=== PATIENT | female | born 1975 | race American Indian/Alaskan Native ===

== ENCOUNTER 2017-11-17 10:50 | Inpatient (IN) | payer BC, OTHER ==
[2017-11-17 11:01] VITALS: BMI 33.9
[2017-11-17] MEDS ORDERED: Oxycodone/Acetaminophen 5/325 mg Tab PO STA (11:31)
[2017-11-17] MEDS ORDERED: Sodium Chloride 0.9% 1,000 ML IV STA (11:31)
--- NOTE | 2017-11-17 11:49 | ED PDOC ---
HPI: Abdomen Time Seen by Provider: 11/17/17 11:13 Chief Complaint (Nursing): Back Pain Chief Complaint (Provider): Right Flank and Abdominal Pain History Per: Patient History/Exam Limitations: no limitations Current Symptoms Are (Timing): Still Present Associated Symptoms: denies: Nausea, Vomiting, Diarrhea Additional Complaint(s): 41 year old female, with a past medical history of HTN, presents to the ED complaining of right flank pain and right abdominal pain and severe burning with urination. Patient went to see her PMD who wasn't available so was seen by another doctor who prescribed Cipro. Patient was told to return to the ED if symptoms did not improve. Patient states symptoms worsened prompting ED visit. She states she had dark urine and increased frequency but no blood. She indicates having similar symptoms over the last few months which would come and go but these symptoms are worse. Patient reports having a nonemergent CT in the next month but is not sure what her PMD is looking for. Last month, she had right leg swellign and pain that started in the right calf and went upward and now is in the right posterior thigh. Patient was supposed to take HCTZ but told not to take it due to increased urinary frequency. Denies vaginal pain, vaginal bleeding, vaginal discharge, nausea, vomiting, diarrhea, SOB, cough, CP , recent immobilization, or history of DVT. LMP 11/09/17. PMD: Juan Saldana Past Medical History Reviewed: Historical Data, Nursing Documentation, Vital Signs Vital Signs: Last Vital Signs Temp 98.1 F 11/17/17 22:11 Pulse 71 11/17/17 22:59 Resp 18 11/17/17 22:59 BP 144/95 H 11/17/17 22:11 Pulse Ox 98 11/18/17 14:25 - Medical History PMH: Arthritis (BOTH KNEES), HTN Denies: Chronic Kidney Disease - Surgical History Other surgeries: Gastric sleeve, bilateral trigger finger surgeries, breast reduction - Family History Family History: States: Unknown Family Hx - Social History Current smoker - smoking cessation education provided: No Alcohol: None Drugs: Cannabis - Immunization History Hx Tetanus Toxoid Vaccination: No Hx Influenza Vaccination: Yes Hx Pneumococcal Vaccination: Yes - Home Medications Home Medications: Ambulatory Orders Medication Instructions Recorded Hydrochlorothiazide 25 mg PO DAILY 08/19/14 Naproxen [Naprosyn] 500 mg PO BID 11/17/17 traMADol [Ultram] 50 mg PO TID #10 tab 11/18/17 - Allergies Allergies/Adverse Reactions: Allergies Allergy/AdvReac Type Severity Reaction Status Date / Time amlodipine Allergy SWELLING Verified 11/17/17 11:11 avocado Allergy URTICARIA Verified 11/17/17 11:10 Review of Systems ROS Statement: Except As Marked, All Systems Reviewed And Found Negative Cardiovascular: Negative for: Chest Pain Respiratory: Negative for: Cough, Shortness of Breath Gastrointestinal: Positive for: Abdominal Pain (right flank pain and right abdominal pain). Negative for: Nausea, Vomiting, Diarrhea Genitourinary Female: Positive for: Frequency, Other (Burning with urination and dark urine). Negative for: Hematuria, Vaginal Discharge, Vaginal Bleeding, Pelvic Pain Physical Exam - Reviewed Nursing Documentation Reviewed: Yes Vital Signs Reviewed: Yes - Physical Exam Appears: Positive for: Non-toxic, No Acute Distress Head Exam: Positive for: ATRAUMATIC, NORMOCEPHALIC Skin: Positive for: Normal Color, Warm, Dry Eye Exam: Positive for: Normal appearance Neck: Positive for: Normal, Painless ROM Cardiovascular/Chest: Positive for: Regular Rate, Rhythm. Negative for: Murmur Respiratory: Positive for: Normal Breath Sounds. Negative for: Wheezing, Respiratory Distress Pulses-Dorsalis Pedis (L): 2+ Pulses-Dorsalis Pedis (R): 2+ Pulses-Femoral (L): 2+ Pulses-Femoral (R): 2+ Pulses-Post. Tibialis (L): 2+ Pulses-Post. Tibialis (R): 2+ Gastrointestinal/Abdominal: Positive for: Soft, Other (Right flank pain, LLQ sensation of fullness on palpation; suprapubic and RLQ pain on palpation) Extremity: Positive for: Normal ROM, Other (Right leg not obviously swollen compared to left leg; pain on calf squeeze; tenderness to palpation of popliteal fossa with no warmth and redness) Neurologic/Psych: Positive for: Alert, Oriented. Negative for: Motor/Sensory Deficits - Laboratory Results Result Diagrams: 11/17/17 21:19 11/17/17 12:03 - ECG O2 Sat by Pulse Oximetry: 98 (RA) Pulse Ox Interpretation: Normal Medical Decision Making Medical Decision Making: Initial Impression: Right flank pain and right abdominal pain with burning with urination Work up for UTI vs pyelonephritis vs nephrolithiasis based on frequency of similar symptoms in the past. Work up for DVT with a wells DVT score of 1. Initial Plan: --CT abd --CMP --Lipase --CBC --D Dimer --Partial thromboplastin --Prothrombin --Chest X-ray --Sodium chloride 1000mL IV --Oxycodone 1 tab PO --Urinalysis --US Lower extremity CT per PMD request and US to r/o right lower extremity DVT. 15:15 Patient labs came back revealing D Dimer greater than 1200. Duplex of right lower extremity reveals no DVT with good blood flow. Labs show hemoglobin of 6.6 and hematocrit of 22 with microcytic anemia. Patient states that her PMD told her that her red blood cells were low but it was something to watch. Patient has never had a blood transfusion. Need for transfusion discussed with patient due to low hematocrit and hemoglobin levels and patient requests to think about it to make a decision later. Spoke with Dr. Almaguer who is covering for [place] and patient to be admitted and will be notified of CT findings. Vitals remain stable. Type and screen to be sent for possible blood transfusion and fecal blood test sent. Patient reports pain better controlled with morphine. Scribe Attestation: Documented by Casey Tubbs acting as a scribe for Komal Carlos MD. Provider Scribe Attestation: All medical record entries made by the Scribe were at my direction and personally dictated by me. I have reviewed the chart and agree that the record accurately reflects my personal performance of the history, physical exam, medical decision making, and the department course for this patient. I have also personally directed, reviewed, and agree with the discharge instructions and disposition. Time: 1705 -- CT shows right renal cortical scarring and possible left non-obstructing stones. Possible multiple small retroperitoneal stones noted as well. Patient is comfortable and stable. FOBT levels results negative. Patient is currently waiting a bed on the floor. Scribe Attestation: Documented by Tony Aguilar acting as a scribe for Dr. Komal Carlos MD. Provider Scribe Attestation: All medical record entries made by the Scribe were at my direction and personally dictated by me. I have reviewed the chart and agree that the record accurately reflects my personal performance of the history, physical exam, medical decision making, and the department course for this patient. I have also personally directed, reviewed, and agree with the discharge instructions and disposition. Disposition - Clinical Impression Clinical Impression: Nephrolithiasis, Leg pain - Disposition Disposition Time: 14:56 Condition: GUARDED
[2017-11-17 11:53] LABS: SQUAMOUS EPITHIAL 13 /hpf (0-5); URINE BILIRUBIN NEGATIVE (NEGATIVE); URINE BLOOD NEGATIVE (NEGATIVE); URINE CLARITY CLOUDY (Clear); URINE COLOR YELLOW (YELLOW); URINE GLUCOSE (UA) NEG (Normal); URINE LEUKOCYTE ESTERASE NEG Leu/uL (Negative); URINE PROTEIN 30 mg/dL (NEGATIVE); URINE UROBILINOGEN 0.2-1.0 mg/dL (0.2-1.0)
[2017-11-17] MEDS ORDERED: Oxycodone/Acetaminophen 5/325 mg Tab ONE (12:12)
[2017-11-17 12:20] LABS: ALB/GLOB RATIO 0.9 (1.0-2.1); ALT/SGPT 30 U/L (9-52); AST/SGOT 65 U/L (14-36); BLOOD UREA NITROGEN 10 mg/dl (7-17); CALCIUM 9.3 mg/dL (8.4-10.2); GFR NON-AFRICAN AMERICAN > 60; LIPASE 68 U/L (23-300)
[2017-11-17 12:21] LABS: INR 1.2; PROTHROMBIN TIME 13.6 Seconds (9.8-13.1)
[2017-11-17 12:29] LABS: BASO # 0.1 K/uL (0.0-0.2); BASO % 0.8 % (0.0-2.0); EOS # 0.3 K/uL (0.0-0.7); EOS % 3.1 % (0.0-4.0); HEMOGLOBIN 6.8 g/dL (12.0-16.0); LYMPH # 1.3 K/uL (1.0-4.3); LYMPH % 16.2 % (20.0-40.0); MEAN CORPUSCULAR HEMOGLOBIN 18.7 pg (27.0-31.0); MEAN PLATELET VOLUME 7.4 fl (7.2-11.7); MONO # 0.9 K/uL (0.0-0.8); MONO % 10.5 % (0.0-10.0); NEUT # 5.7 K/uL (1.8-7.0); NEUT % 69.4 % (50.0-75.0); NRBC % 0.1 % (0.0-0.0); RBC 3.66 Mil/uL (3.80-5.20); RED CELL DISTRIBUTION WIDTH 17.9 % (11.5-14.5); WHITE BLOOD COUNT 8.2 K/uL (4.8-10.8)
[2017-11-17 13:56] LABS: MEAN CELL VOLUME 62.3 fl (81.0-99.0)
--- NOTE | 2017-11-17 16:00 | RAD ---
Date of service: 11/17/2017 HISTORY: possible admission COMPARISON: No prior. FINDINGS: LUNGS: No active pulmonary disease. PLEURA: No significant pleural effusion identified, no pneumothorax apparent. CARDIOVASCULAR: Normal. OSSEOUS STRUCTURES: No significant abnormalities. VISUALIZED UPPER ABDOMEN: Normal. OTHER FINDINGS: None. IMPRESSION: No active disease.
--- NOTE | 2017-11-17 16:46 | CT ---
Date of service: 11/17/2017 PROCEDURE: CT abdomen pelvis HISTORY: Right flank pain off and on for 2 months. COMPARISON: None. TECHNIQUE: Contiguous axial images of the abdomen and pelvis. Oral contrast was administered. No IV contrast given. Coronal and Sagittal reformats generated. Radiation dose: Total exam DLP = mGy-cm. This CT exam was performed using one or more of the following dose reduction techniques: Automated exposure control, adjustment of the mA and/or kV according to patient size, and/or use of iterative reconstruction technique. FINDINGS: LOWER THORAX: Heart size is mildly enlarged. There is a small to medium size hiatal hernia with air-fluid level consistent with reflux. Mild passive/dependent type atelectasis both posterior lower lung cosby. There are also some minor curvilinear atelectasis/ scarring changes both lung bases including the middle lobe region. No focal consolidation. No effusion or basilar pneumothorax. LIVER: Liver is upper limits of normal measuring over 18 cm in CC dimension. No obvious hepatic mass or collection. GALLBLADDER AND BILE DUCTS: Gallbladder is physiologically distended. No evidence of intraluminal gallbladder calculi. PANCREAS: Unremarkable. No mass. No ductal dilatation. SPLEEN: Spleen is upper limits of normal measuring nearly 12.6 cm in AP dimension. No splenic mass collection or calcification. ADRENALS: No obvious adrenal lesions KIDNEYS AND URETERS: Kidneys demonstrate relatively symmetric size. . Tiny suspected nonobstructing calcification cortex upper/midpole left kidney. Lobular appearing cortex versus cortical scarring along the posterior cortex mid-lower pole right kidney. . BLADDER: Urinary bladder physiologically distended. No evidence of intraluminal urinary bladder calculi REPRODUCTIVE: Uterus present and grossly unremarkable APPENDIX: Appendix is not seen with complete certainty on this study however no obvious inflammatory changes identified in the right lower quadrant of the abdomen BOWEL: Evaluation of the bowel is somewhat limited due to the lack of oral contrast. Apparent postoperative changes of gastric sleeve surgery however clinical correlation with surgical history recommended. Visualized loops of small bowel exhibit normal contour and caliber. No evidence of acute mechanical small bowel obstruction. There is a moderate amount of stool seen within the cecum ascending and transverse colon suggesting mild fecal retention/constipation. PERITONEUM: There appears to be increased mesenteric vascularity nonspecific with multiple small mesenteric lymph nodes. Rule out mesenteric adenitis. . . No fluid collection. No free air. LYMPH NODES: As above. Multiple small to medium-sized peripancreatic, periceliac, retroperitoneal lymph nodes also present. . Clinical correlation recommended VASCULATURE: Unremarkable. No aortic aneurysm. BONES: Minor multilevel degenerative spondylosis of the lower thoracic/ lumbar spine. OTHER FINDINGS: None. IMPRESSION: Findings suggest mild constipation. Borderline hepatosplenomegaly. . There are multiple small to medium sized retroperitoneal lymph nodes of uncertain etiology and multiple small on mesenteric lymph nodes. Rule out mesenteric adenitis. . Apparent nonspecific increased mesenteric vascularity ; clinical correlation recommended. Small to medium size hiatal hernia with some small fluid level consistent with reflux. Apparent postop changes of gastric sleeve procedure.
[2017-11-17 22:13] VITALS: BP 144/95; PULSE 71; TEMP 98.1
[2017-11-17 22:14] LABS: BASO % 0.4 % (0.0-2.0); EOS # 0.2 K/uL (0.0-0.7); EOS % 2.9 % (0.0-4.0); LYMPH # 1.5 K/uL (1.0-4.3); MEAN CORPUSCULAR HEMOGLOBIN 18.8 pg (27.0-31.0); MEAN CORPUSCULAR HGB CONC 30.3 g/dL (33.0-37.0); MEAN PLATELET VOLUME 7.2 fl (7.2-11.7); MONO # 0.9 K/uL (0.0-0.8); MONO % 11.2 % (0.0-10.0); NEUT # 5.6 K/uL (1.8-7.0); NEUT % 67.5 % (50.0-75.0); RBC 3.4 Mil/uL (3.80-5.20); WHITE BLOOD COUNT 8.2 K/uL (4.8-10.8)
[2017-11-17 22:21] LABS: HEMOGLOBIN 6.4 g/dL (12.0-16.0)
--- NOTE | 2017-11-17 23:37 | CP.PCM.PCO ---
Against Medical Advice - AMA Patient Left Against Medical Advice: The patient declines admission to the hospital and wishes to leave telemetry, inpatient admission. This action is against my medical advice. This decision was made with informed refusal. The patient was told that admission to the hospital is necessary. Explanation of the reasons why were discussed. The risks of leaving were explained to the patient and include, but are not limited to, worsening of known or currently unknown conditions, permanent disability and from undiagnosed or untreated conditions. The patient has the capacity to make this informed decision and understands my explanation of the current medical problem and risks of leaving. The patient voluntarily accepts these risks and signed an AMA form documenting our conversation. The patient was given the opportunity to ask questions and reconsider. The patient was encouraged to return to the Emergency Department at any time for further care. Assessment/Plan - Assessment and Plan (Free Text) Assessment: 41 YO Female was admitted for Anemia, elevated D-dimer. This MD was called to telemetry floor to sign the patient out AMA. PMD is aware of the situation and was notified that patient would like to sign out AMA Potential risks of signing out AMA is discussed with patient including but not limited to syncope, dizziness, dyspnea, . Potential benefit including but not limited to resolution of the anemia. Pt understands but would like to sign out AMA.
[2017-11-18] VITALS: RESP 18
--- NOTE | 2017-11-18 12:09 | CARD ---
APPROVED REPORT Date of service: 11/17/2017 <Conclusion> Normal sinus rhythm with sinus arrhythmia Normal ECG
[2017-11-18 14:22] VITALS: O2SAT 98
--- NOTE | 2017-11-19 16:12 | US ---
Date of service: 11/17/2017 PROCEDURE: Duplex ultrasound of the right lower extremity arteries. HISTORY: migratory pain swelling to right leg with warmth. COMPARISON: None available. TECHNIQUE: Grayscale and duplex Doppler evaluation of the right common femoral, superficial femoral, popliteal, posterior tibial and dorsalis pedis arteries was performed.. FINDINGS: COMMON FEMORAL ARTERY: Patent. Maximal flow velocity of 124.7 cm/s. normal high resistance waveform. SUPERFICIAL FEMORAL ARTERY:Patent. Maximal flow velocity of 95.8 cm/s. normal high resistance waveform. POPLITEAL ARTERY:Patent. Maximal flow velocity of 47.9 cm/s. normal high resistance waveform. POSTERIOR TIBIAL ARTERY: Patent. Maximal flow velocity of 41.8 cm/s. normal high resistance waveform. DORSALIS PEDIS ARTERY: Patent. Maximal flow velocity of 30.5 cm/s. normal high resistance waveform. ANTERIOR TIBIAL ARTERY: Patent. Maximal flow velocity of 66.4 cm/s. normal high resistance waveform. OTHER FINDINGS: None. IMPRESSION: No significant stenosis identified throughout the right lower extremity major arteries. Concordant preliminary report from [facility], 11/17/2017.
== END 2017-11-17 23:30 | disposition left against medical advice (07) | DRG 812 ==
LOC: H.ER 10:50 → H.ERHOLD 14:56 → H.TEL 21:38
PROVIDERS: ADMIT Family Medicine; ATTEND Family Medicine
DX: D50.9 Iron deficiency anemia, unspecified (principal); I10 Essential (primary) hypertension; R79.1 Abnormal coagulation profile; M17.0 Bilateral primary osteoarthritis of knee; Z98.84 Bariatric surgery status

== ENCOUNTER 2017-11-23 14:33 | Inpatient (IN) | payer BC, OTHER ==
[2017-11-23 14:34] VITALS: BMI 33.9
--- NOTE | 2017-11-23 15:23 | ED PDOC ---
Lower Extremity Pain/Injury Time Seen by Provider: 11/23/17 15:00 Chief Complaint (Nursing): Lower Extremity Problem/Injury Chief Complaint (Provider): DVT History Per: Patient History/Exam Limitations: no limitations Onset/Duration Of Symptoms: Days Current Symptoms Are (Timing): Still Present Additional Complaint(s): 41 year old female with a history of gastric sleeve with ongoing anemia was referred to the ED for DVT noted in outpatient care. She was sent by her PMD for treatment and admission. She has moderate lower back pain that radiates to thighs as well as vaginal bleeding. Denies chest pain or shortness of breath. PMD: Juan Lowry Past Medical History Reviewed: Historical Data, Nursing Documentation, Vital Signs Vital Signs: Last Vital Signs Temp 98.2 F 11/23/17 14:41 Pulse 82 11/23/17 14:41 Resp 19 11/23/17 14:41 BP 120/77 11/23/17 14:41 Pulse Ox 98 11/23/17 14:41 - Medical History PMH: Anemia, Arthritis (BOTH KNEES), HTN Denies: Chronic Kidney Disease - Surgical History Other surgeries: gastric sleeve - Family History Family History: States: Unknown Family Hx - Immunization History Hx Tetanus Toxoid Vaccination: No Hx Influenza Vaccination: Yes Hx Pneumococcal Vaccination: Yes - Home Medications Home Medications: Ambulatory Orders Medication Instructions Recorded Hydrochlorothiazide 25 mg PO DAILY 08/19/14 Naproxen [Naprosyn] 500 mg PO BID PRN 11/17/17 Nitrofurantoin Macrocrystals 100 mg PO Q12 11/23/17 [Macrobid] - Allergies Allergies/Adverse Reactions: Allergies Allergy/AdvReac Type Severity Reaction Status Date / Time amlodipine Allergy SWELLING Verified 11/17/17 11:11 avocado Allergy URTICARIA Verified 11/17/17 11:10 Review of Systems ROS Statement: Except As Marked, All Systems Reviewed And Found Negative Cardiovascular: Negative for: Chest Pain Respiratory: Negative for: Shortness of Breath Genitourinary Female: Positive for: Vaginal Bleeding Musculoskeletal: Positive for: Back Pain Physical Exam - Reviewed Nursing Documentation Reviewed: Yes Vital Signs Reviewed: Yes - Physical Exam Appears: Positive for: Non-toxic, No Acute Distress Head Exam: Positive for: ATRAUMATIC, NORMAL INSPECTION, NORMOCEPHALIC Skin: Positive for: Normal Color, Warm, Dry Eye Exam: Positive for: EOMI, Normal appearance, PERRL ENT: Positive for: Normal ENT Inspection Neck: Positive for: Normal, Painless ROM, Supple. Negative for: Decreased ROM Cardiovascular/Chest: Positive for: Regular Rate, Rhythm. Negative for: Murmur Respiratory: Positive for: Normal Breath Sounds. Negative for: Decreased Breath Sounds, Wheezing, Respiratory Distress Gastrointestinal/Abdominal: Positive for: Normal Exam, Bowel Sounds, Soft. Negative for: Tenderness, Guarding Back: Positive for: Normal Inspection. Negative for: L CVA Tenderness, R CVA Tenderness Extremity: Positive for: Normal ROM. Negative for: Tenderness, Pedal Edema, Deformity Neurologic/Psych: Positive for: Alert, Oriented (x3). Negative for: Motor/ Sensory Deficits - Laboratory Results Result Diagrams: 11/24/17 16:10 11/23/17 16:10 - ECG O2 Sat by Pulse Oximetry: 98 (RA) Pulse Ox Interpretation: Normal - Progress ED Course And Treament: D/W [facility] [employer]. HAS SEN PRELIM REPORT DUPLEX RIGHT LEG: DEMONSTRATING DVT RIGHT COMMON FEMORAL TO POPLITEAL VEINS. d/w Dr. Almaguer. 2 units RBCs ordered. d/w Dr. Sotero [place]. Lovenox ordered for dvt treatment. Patient to have stool occult guiac x 3 days to assure no bleeding. Medical Decision Making Medical Decision Making: Time: 1507 Initial Impression: DVT Initial Plan: --BKK Type and Screen --EKG --CMP --CBC w/ Differential --PTT --Prothrombin Time --Urinalysis --Reevaluation Pulmonary report from [place] radiology fax presents US RLE venous dopper says DVT from common femur through popliteal veins Scribe Attestation: Documented by Maurice Morejon, acting as a scribe for Adrian Coleman PA-C. Provider Scribe Attestation: All medical record entries made by the Scribe were at my direction and personally dictated by me. I have reviewed the chart and agree that the record accurately reflects my personal performance of the history, physical exam, medical decision making, and the department course for this patient. I have also personally directed, reviewed, and agree with the discharge instructions and disposition. Disposition - Clinical Impression Clinical Impression: DVT (deep venous thrombosis), Anemia - Patient ED Disposition Is Patient to be Admitted: Yes - Disposition Disposition Time: 17:21 Condition: FAIR - Pt Status Changed To: Hospital Disposition Of: Inpatient - Admit Certification Admit to Inpatient:: After my assessment, the patient will require hospitalization for at least two midnights. This is because of the severity of symptoms shown, intensity of services needed, and/or the medical risk in this patient being treated as an outpatient.
[2017-11-23 16:11] LABS: BASO # 0.1 K/uL (0.0-0.2); BASO % 0.6 % (0.0-2.0); EOS # 0.3 K/uL (0.0-0.7); HEMOGLOBIN 7.3 g/dL (12.0-16.0); LYMPH # 1.5 K/uL (1.0-4.3); LYMPH % 16.3 % (20.0-40.0); MEAN CELL VOLUME 61.9 fl (81.0-99.0); MEAN CORPUSCULAR HEMOGLOBIN 18.9 pg (27.0-31.0); MEAN CORPUSCULAR HGB CONC 30.6 g/dL (33.0-37.0); MEAN PLATELET VOLUME 7.6 fl (7.2-11.7); MONO # 0.6 K/uL (0.0-0.8); NEUT # 6.5 K/uL (1.8-7.0); NEUT % 73.1 % (50.0-75.0); RBC 3.86 Mil/uL (3.80-5.20); RED CELL DISTRIBUTION WIDTH 18.2 % (11.5-14.5); WHITE BLOOD COUNT 8.9 K/uL (4.8-10.8)
[2017-11-23 16:14] LABS: INR 1.2; PROTHROMBIN TIME 13.1 Seconds (9.8-13.1)
[2017-11-23 16:17] LABS: PARTIAL THROMBOPLASTIN TIME 24.4 Seconds (25.6-37.1)
[2017-11-23 16:53] LABS: ALB/GLOB RATIO 0.9 (1.0-2.1); ALT/SGPT 20 U/L (9-52); AST/SGOT 35 U/L (14-36); BLOOD UREA NITROGEN 13 mg/dl (7-17); CALCIUM 9.5 mg/dL (8.4-10.2); GFR NON-AFRICAN AMERICAN > 60
[2017-11-23] MEDS ORDERED: Enoxaparin 80 mg Syringe SC STA ×2 (17:44→17:47)
[2017-11-23] MEDS: Enoxaparin 100 mg Syringe SC SCH (18:12)
[2017-11-23 19:32] LABS: FERRITIN 8.7 ng/Ml (6.24-137.0)
[2017-11-24] MEDS: Enoxaparin 100 mg Syringe SC SCH ×2 (05:52→17:14)
[2017-11-24] MEDS ORDERED: Naproxen 500 MG TAB PO PRN (06:31)
--- NOTE | 2017-11-24 09:28 | CARD ---
APPROVED REPORT Date of service: 11/23/2017 EKG Measurement Heart [id number] ID [id number] <Conclusion> Normal sinus rhythm Normal ECG
--- NOTE | 2017-11-24 14:01 | CP.PCM.HP ---
History of Present Illness - History of Present Illness History of Present Illness: 41 year old female with a history of gastric sleeve with ongoing anemia was referred to the ED for DVT noted in outpatient care. She was sent by her PMD for treatment and admission. She has moderate lower back pain that radiates to thighs as well as vaginal bleeding. Denies chest pain or shortness of breath. pt recieved transfusion, is stable, no active bleeding. Present on Admission - Present on Admission Any Indicators Present on Admission: No Review of Systems - Constitutional Constitutional: absent: As Per HPI, Anorexia, Chills, Daytime Sleepiness, Excessive Sweating, Fatigue, Fever, Frequent Falls, Headache, Increased Appetite , Lethargy, Malaise, Night Sweats, Snoring, Sleep Apnea, Weight Gain, Weight Loss, Weakness, Other - Cardiovascular Cardiovascular: absent: As Per HPI, Acrocyanosis, Chest Pain, Chest Pain at Rest , Chest Pain with Activity, Claudication, Diaphoresis, Dyspnea, Dyspnea on Exertion, Edema, Irregular Heart Rhythm, Pain Radiating to Arm/Neck/Jaw, Leg Edema, Leg Ulcers, Lightheadedness, Orthopnea, Palpitations, Paroxysmal Nocturnal Dyspnea, Pedal Edema, Radiating Pain, Rapid Heart Rate, Slow Heart Rate, Syncope, Other - Respiratory Respiratory: absent: As Per HPI, Cough, Dyspnea, Hemoptysis, Dyspnea on Exertion , Wheezing, Snoring, Stridor, Pain on Inspiration, Chest Congestion, Excessive Mucous Production, Change in Mucous Color, Pain with Coughing, Other - Gastrointestinal Gastrointestinal: absent: As Per HPI, Abdominal Pain, Belching, Bloating, Change in Bowel Habits, Change in Stool Character, Coffee Ground Emesis, Constipation, Cramping, Diarrhea, Dyspepsia, Dysphagia, Early Satiety, Excessive Flatus, Fecal Incontinence, Heartburn, Hematemesis, Hematochezia, Loose Stools, Melena, Nausea, Odynophagia, Temesmus, Vomiting, Other - Neurological Neurological: absent: As Per HPI, Abnormal Gait, Abnormal Hearing, Abnormal Movements, Abnormal Speech, Behavioral Changes, Burning Sensations, Confusion, Convulsions, Disequilibrium, Dizziness, Numbness, Focal Weakness, Frequent Falls , Headaches, Lack of Coordination, Loss of Vision, Memory Loss, Paresthesias, Radicular Pain, Restless Legs, Sensory Deficit, Syncope, Tingling, Tremor, Vertigo, Weakness, Other Visual Disturbances, Other Past Patient History - Past Medical History & Family History Past Medical History?: Yes - Past Social History Smoking Status: Never Smoked - CARDIAC Hx Cardiac Disorders: Yes Hx Hypertension: Yes - PULMONARY Hx Respiratory Disorders: No - NEUROLOGICAL Hx Neurological Disorder: No - HEENT Hx HEENT Problems: No - RENAL Hx Chronic Kidney Disease: No - ENDOCRINE/METABOLIC Hx Endocrine Disorders: No - HEMATOLOGICAL/ONCOLOGICAL Hx Blood Disorders: Yes Hx Anemia: Yes - INTEGUMENTARY Hx Dermatological Problems: No - MUSCULOSKELETAL/RHEUMATOLOGICAL Hx Musculoskeletal Disorders: No Hx Falls: No - GASTROINTESTINAL Hx Gastrointestinal Disorders: No - GENITOURINARY/GYNECOLOGICAL Hx Genitourinary Disorders: No - PSYCHIATRIC Hx Psychophysiologic Disorder: No Hx Substance Use: No - SURGICAL HISTORY Hx Surgeries: Yes Other/Comment: 08/2014 Gastric Sleeve. 2009 TRIGGER FINGER BOTH HANDS. 2004 BREAST REDUCTION - ANESTHESIA Hx Anesthesia: Yes Hx Anesthesia Reactions: No Hx Malignant Hyperthermia: No Meds Allergies/Adverse Reactions: Allergies Allergy/AdvReac Type Severity Reaction Status Date / Time amlodipine Allergy SWELLING Verified 11/17/17 11:11 avocado Allergy URTICARIA Verified 11/17/17 11:10 Physical Exam - Head Exam Head Exam: ATRAUMATIC, NORMAL INSPECTION - Eye Exam Eye Exam: EOMI, Normal appearance Pupil Exam: NORMAL ACCOMODATION - ENT Exam ENT Exam: Mucous Membranes Moist, Normal Exam - Neck Exam Neck exam: Positive for: Normal Inspection - Respiratory Exam Respiratory Exam: Clear to Auscultation Bilateral, NORMAL BREATHING PATTERN - Cardiovascular Exam Cardiovascular Exam: REGULAR RHYTHM, +S1, +S2 - GI/Abdominal Exam GI & Abdominal Exam: Normal Bowel Sounds, Soft - Extremities Exam Extremities exam: Positive for: full ROM, normal inspection - Neurological Exam Neurological exam: Alert, Oriented x3 Results - Vital Signs Recent Vital Signs: Last Vital Signs Temp 98 F 11/24/17 12:58 Pulse 63 11/24/17 12:58 Resp 20 11/24/17 12:58 BP 124/83 11/24/17 12:58 Pulse Ox 100 11/24/17 12:58 - Labs Result Diagrams: 11/23/17 15:20 11/23/17 16:10 Labs: Laboratory Results - last 24 hr 11/23/17 11/23/17 11/23/17 15:20 15:20 15:20 WBC 8.9 RBC 3.86 Hgb 7.3 L Hct 23.9 L MCV 61.9 L MCH 18.9 L MCHC 30.6 L RDW 18.2 H Plt Count 629 H MPV 7.6 Neut % (Auto) 73.1 Lymph % (Auto) 16.3 L [place] % (Auto) 7.0 Eos % (Auto) 3.0 Baso % (Auto) 0.6 Neut # (Auto) 6.5 Lymph # (Auto) 1.5 [place] # (Auto) 0.6 Eos # (Auto) 0.3 Baso # (Auto) 0.1 Retic Count PT 13.1 INR 1.2 APTT 24.4 L Sodium Potassium Chloride Carbon Dioxide Anion Gap BUN Creatinine Est GFR ( Amer) Est GFR (Non-Af Amer) Random Glucose Calcium Ferritin Total Bilirubin AST ALT Alkaline Phosphatase Total Protein Albumin Globulin Albumin/Globulin Ratio Vitamin B12 Stool Occult Blood Blood Type B POSITIVE Antibody Screen Negative Crossmatch See Detail BBK History Checked Patient has bt 11/23/17 11/23/17 11/23/17 15:40 16:10 17:50 WBC RBC Hgb Hct MCV MCH MCHC RDW Plt Count MPV Neut % (Auto) Lymph % (Auto) [place] % (Auto) Eos % (Auto) Baso % (Auto) Neut # (Auto) Lymph # (Auto) [place] # (Auto) Eos # (Auto) Baso # (Auto) Retic Count PT INR APTT Sodium 141 Potassium 3.8 Chloride 104 Carbon Dioxide 28 Anion Gap 13 BUN 13 Creatinine 0.7 Est GFR ( Amer) > 60 Est GFR (Non-Af Amer) > 60 Random Glucose 86 Calcium 9.5 Ferritin 8.7 Total Bilirubin 0.4 AST 35 ALT 20 Alkaline Phosphatase 98 Total Protein 8.3 H Albumin 4.0 Globulin 4.3 H Albumin/Globulin Ratio 0.9 L Vitamin B12 > 1000 H Stool Occult Blood Negative Blood Type Antibody Screen Crossmatch BBK History Checked 11/23/17 17:50 WBC RBC Hgb Hct MCV MCH MCHC RDW Plt Count MPV Neut % (Auto) Lymph % (Auto) [place] % (Auto) Eos % (Auto) Baso % (Auto) Neut # (Auto) Lymph # (Auto) [place] # (Auto) Eos # (Auto) Baso # (Auto) Retic Count 1.6 H PT INR APTT Sodium Potassium Chloride Carbon Dioxide Anion Gap BUN Creatinine Est GFR ( Amer) Est GFR (Non-Af Amer) Random Glucose Calcium Ferritin Total Bilirubin AST ALT Alkaline Phosphatase Total Protein Albumin Globulin Albumin/Globulin Ratio Vitamin B12 Stool Occult Blood Blood Type Antibody Screen Crossmatch BBK History Checked Assessment & Plan - Assessment and Plan (Free Text) Assessment: 1. DVT pt on lovenox hem consulted cont to monitor will change to po once hb is stable 2. anemia fobt neg ct done s/p transfusion will cont to monitor.
[2017-11-24 16:16] LABS: MEAN CORPUSCULAR HEMOGLOBIN 20.5 pg (27.0-31.0); MEAN CORPUSCULAR HGB CONC 31.1 g/dL (33.0-37.0); RBC 4.17 Mil/uL (3.80-5.20); RED CELL DISTRIBUTION WIDTH 22.5 % (11.5-14.5); WHITE BLOOD COUNT 7.7 K/uL (4.8-10.8)
[2017-11-24 16:19] LABS: HEMOGLOBIN 8.6 g/dL (12.0-16.0)
[2017-11-25] MEDS: Enoxaparin 100 mg Syringe SC SCH ×2 (05:53→17:00)
[2017-11-25 07:02] LABS: HEMOGLOBIN 8.5 g/dL (12.0-16.0); MEAN CORPUSCULAR HEMOGLOBIN 20.6 pg (27.0-31.0); MEAN CORPUSCULAR HGB CONC 31.3 g/dL (33.0-37.0); RBC 4.14 Mil/uL (3.80-5.20); RED CELL DISTRIBUTION WIDTH 21.9 % (11.5-14.5)
[2017-11-25 07:23] LABS: MEAN CELL VOLUME 65.7 fl (81.0-99.0)
--- NOTE | 2017-11-25 11:23 | CP.PCM.CON ---
History of Present Illness - History of Present Illness History of Present Illness: P5t seen orders written.\ Full consult note to follow. Orders written A. Pt has been anemic but not so low. a 3 yrs ago.nemia secondary to gastric sleeve surgery Past Patient History - Past Medical History & Family History Past Medical History?: Yes - Past Social History Smoking Status: Never Smoked - CARDIAC Hx Hypertension: Yes - PULMONARY Hx Respiratory Disorders: No - NEUROLOGICAL Hx Neurological Disorder: No - HEENT Hx HEENT Problems: No - RENAL Hx Chronic Kidney Disease: No - ENDOCRINE/METABOLIC Hx Endocrine Disorders: No - HEMATOLOGICAL/ONCOLOGICAL Hx Anemia: Yes - INTEGUMENTARY Hx Dermatological Problems: No - MUSCULOSKELETAL/RHEUMATOLOGICAL Hx Arthritis: Yes (BOTH KNEES) - GASTROINTESTINAL Hx Gastrointestinal Disorders: No - GENITOURINARY/GYNECOLOGICAL Hx Genitourinary Disorders: No - PSYCHIATRIC Hx Psychophysiologic Disorder: No Hx Substance Use: No - SURGICAL HISTORY Hx Surgeries: Yes Other/Comment: 08/2014 Gastric Sleeve. 2009 TRIGGER FINGER BOTH HANDS. 2004 BREAST REDUCTION - ANESTHESIA Hx Anesthesia: Yes Hx Anesthesia Reactions: No Hx Malignant Hyperthermia: No Meds Allergies/Adverse Reactions: Allergies Allergy/AdvReac Type Severity Reaction Status Date / Time amlodipine Allergy SWELLING Verified 11/17/17 11:11 avocado Allergy URTICARIA Verified 11/17/17 11:10 - Medications Medications: Current Medications Enoxaparin Sodium (Lovenox) 90 mg SC Q12H EMILE PRN Reason: Protocol Last Admin: 11/25/17 05:53 Dose: 90 mg Iron Sucrose 200 mg/ Sodium (Chloride) 110 mls @ 110 mls/hr IVPB DAILY [facility]1983 Ketorolac Tromethamine (Toradol) 15 mg IVP Q6 PRN PRN Reason: Pain, moderate (4-7) Last Admin: 11/25/17 08:32 Dose: 15 mg Ondansetron HCl (Zofran Inj) 4 mg IVP Q6 PRN PRN Reason: Nausea/Vomiting Results - Vital Signs Recent Vital Signs: Last Vital Signs Temp 98.7 F 11/25/17 08:22 Pulse 55 L 11/25/17 08:22 Resp 20 11/25/17 08:22 BP 126/81 11/25/17 08:22 Pulse Ox 100 11/25/17 08:22 - Labs Result Diagrams: 11/25/17 05:00 11/23/17 16:10 Labs: Laboratory Results - last 24 hr 11/24/17 11/24/17 11/25/17 16:10 18:19 05:00 WBC 7.7 7.0 RBC 4.17 4.14 Hgb 8.6 L 8.5 L Hct 27.5 L 27.2 L MCV 66.0 L D 65.7 L MCH 20.5 L 20.6 L MCHC 31.1 L 31.3 L RDW 22.5 H 21.9 H Plt Count 570 H 564 H Stool Occult Blood Negative
--- NOTE | 2017-11-25 12:39 | CP.PCM.PN ---
Subjective - Date & Time of Evaluation Date of Evaluation: 11/25/17 Time of Evaluation: 11:00 - Subjective Subjective: pt seen and examined at bedside. no new complaints. no active bleeding. tolerating po Objective - Vital Signs/Intake and Output Vital Signs (last 24 hours): Temp Pulse Resp BP Pulse Ox 98.5 F 62 20 128/82 100 11/25/17 12:29 11/25/17 12:29 11/25/17 12:29 11/25/17 12:29 11/25/17 12:29 - Medications Medications: Current Medications Enoxaparin Sodium (Lovenox) 90 mg SC Q12H EMILE PRN Reason: Protocol Last Admin: 11/25/17 05:53 Dose: 90 mg Iron Sucrose 200 mg/ Sodium (Chloride) 110 mls @ 110 mls/hr IVPB DAILY EMILE Ketorolac Tromethamine (Toradol) 15 mg IVP Q6 PRN PRN Reason: Pain, moderate (4-7) Last Admin: 11/25/17 08:32 Dose: 15 mg Ondansetron HCl (Zofran Inj) 4 mg IVP Q6 PRN PRN Reason: Nausea/Vomiting - Labs Labs: 11/25/17 05:00 11/23/17 16:10 PT 13.1 Seconds (9.8-13.1) 11/23/17 15:20 INR 1.2 11/23/17 15:20 APTT 24.4 Seconds (25.6-37.1) L 11/23/17 15:20 - Constitutional Appears: Well - Head Exam Head Exam: NORMAL INSPECTION - Eye Exam Pupil Exam: NORMAL ACCOMODATION - ENT Exam ENT Exam: Mucous Membranes Moist - Respiratory Exam Respiratory Exam: Clear to Ausculation Bilateral, NORMAL BREATHING PATTERN - Cardiovascular Exam Cardiovascular Exam: REGULAR RHYTHM, +S1, +S2 - GI/Abdominal Exam GI & Abdominal Exam: Soft, Normal Bowel Sounds - Neurological Exam Neurological Exam: Alert, Oriented x3 Assessment and Plan - Assessment and Plan (Free Text) Assessment: Anemia dvt Plan: 1. anemia s/p transfusion hb8.5 iv iron as per hematology cont to monitor 2. dvt lovenox cont to monitor
[2017-11-26] MEDS: Enoxaparin 100 mg Syringe SC SCH ×2 (05:44→17:23)
[2017-11-26 08:12] VITALS: RESP 20
--- NOTE | 2017-11-26 10:04 | CP.PCM.PN ---
Subjective - Date & Time of Evaluation Date of Evaluation: 11/26/17 Time of Evaluation: 10:04 - Subjective Subjective: pt doing well asking to go home no cp pappitations or sob co mild r high pain cleared by heme/onc for dc bw notes Objective - Vital Signs/Intake and Output Vital Signs (last 24 hours): Temp Pulse Resp BP Pulse Ox 98.1 F 53 L 20 136/85 100 11/26/17 08:11 11/26/17 08:11 11/26/17 08:11 11/26/17 08:11 11/26/17 08:11 - Medications Medications: Current Medications Enoxaparin Sodium (Lovenox) 90 mg SC Q12H EMILE PRN Reason: Protocol Last Admin: 11/26/17 05:44 Dose: 90 mg Iron Sucrose 200 mg/ Sodium (Chloride) 110 mls @ 110 mls/hr IVPB DAILY EMILE Last Admin: 11/26/17 08:45 Dose: 110 mls/hr Ketorolac Tromethamine (Toradol) 15 mg IVP Q6 PRN PRN Reason: Pain, moderate (4-7) Last Admin: 11/25/17 23:16 Dose: 15 mg Ondansetron HCl (Zofran Inj) 4 mg IVP Q6 PRN PRN Reason: Nausea/Vomiting Zolpidem Tartrate (Ambien) 5 mg PO HS EMILE Last Admin: 11/25/17 23:10 Dose: 5 mg - Labs Labs: 11/25/17 05:00 11/23/17 16:10 PT 13.1 Seconds (9.8-13.1) 11/23/17 15:20 INR 1.2 11/23/17 15:20 APTT 24.4 Seconds (25.6-37.1) L 11/23/17 15:20 - Constitutional Appears: Well, Non-toxic, No Acute Distress - Head Exam Head Exam: ATRAUMATIC, NORMAL INSPECTION, NORMOCEPHALIC - Eye Exam Eye Exam: EOMI, Normal appearance, PERRL Pupil Exam: NORMAL ACCOMODATION, PERRL - ENT Exam ENT Exam: Mucous Membranes Moist, Normal Exam - Neck Exam Neck Exam: Full ROM, Normal Inspection. absent: Lymphadenopathy - Respiratory Exam Respiratory Exam: Clear to Ausculation Bilateral, NORMAL BREATHING PATTERN - Cardiovascular Exam Cardiovascular Exam: REGULAR RHYTHM, RRR, +S1, +S2. absent: Murmur - GI/Abdominal Exam GI & Abdominal Exam: Soft, Normal Bowel Sounds. absent: Tenderness - Extremities Exam Extremities Exam: Full ROM, Normal Capillary Refill, Normal Inspection. absent : Joint Swelling, Pedal Edema - Back Exam Back Exam: NORMAL INSPECTION - Neurological Exam Neurological Exam: Alert, Awake, CN II-XII Intact, Normal Gait, Oriented x3 - Psychiatric Exam Psychiatric exam: Normal Affect, Normal Mood - Skin Skin Exam: Dry, Intact, Normal Color, Warm Assessment and Plan (1) Anemia Assessment & Plan: s/p transfusion on venofer-rec'd dose today cleared for dc as per dr yovana pollack. feosola nd colace repeat cbc as outpt, f/u rmg/heme/onc outpt Status: Acute (2) DVT (deep venous thrombosis) Assessment & Plan: lovenox dc on eliquisa s per dr yovana pollack Status: Acute
[2017-11-26 12:10] LABS: BASO # 0.1 K/uL (0.0-0.2); BASO % 1.2 % (0.0-2.0); EOS # 0.2 K/uL (0.0-0.7); EOS % 2.4 % (0.0-4.0); HEMOGLOBIN 8.9 g/dL (12.0-16.0); LYMPH # 1.3 K/uL (1.0-4.3); LYMPH % 20.6 % (20.0-40.0); MEAN CELL VOLUME 65.6 fl (81.0-99.0); MEAN CORPUSCULAR HEMOGLOBIN 19.9 pg (27.0-31.0); MEAN CORPUSCULAR HGB CONC 30.4 g/dL (33.0-37.0); MEAN PLATELET VOLUME 7.8 fl (7.2-11.7); MONO # 0.6 K/uL (0.0-0.8); MONO % 9.3 % (0.0-10.0); NEUT # 4.3 K/uL (1.8-7.0); NEUT % 66.5 % (50.0-75.0); NRBC % 0.1 % (0.0-0.0); RBC 4.44 Mil/uL (3.80-5.20); RED CELL DISTRIBUTION WIDTH 22.5 % (11.5-14.5); WHITE BLOOD COUNT 6.5 K/uL (4.8-10.8)
[2017-11-26 12:14] LABS: INR 1.3; PROTHROMBIN TIME 14.6 Seconds (9.8-13.1)
[2017-11-26 13:07] LABS: ALB/GLOB RATIO 0.9 (1.0-2.1); ALBUMIN 3.8 g/dL (3.5-5.0); ALT/SGPT 22 U/L (9-52); AST/SGOT 50 U/L (14-36); BLOOD UREA NITROGEN 13 mg/dl (7-17); CALCIUM 9.3 mg/dL (8.4-10.2); GFR NON-AFRICAN AMERICAN > 60
--- NOTE | 2017-11-26 13:23 | CP.PCM.CON ---
History of Present Illness - History of Present Illness History of Present Illness: Pt was seen yesterday but note could not be completed. This is a 41 yrs old female who was seen in the ER for pain in the back radiating to the lower extremities.She had a venous deoppler as an out patient and showed a DVT. She was also found to be anemic with a hgb of 7.3. She gave no h/o bleeding from any sites, no blood in the stools. She however had a gastric sleeve bariactric surgery done in 2014. Her b12 was normal and her ferritin was only 8.5ngm. She was given 2 units of packed cells and 2 doses of venofer. Goldy ck cbc in 1 week Past h/o bariactric surgery, no other medical problem. She is not a smoker and drinks occasionally. Past Patient History - Past Medical History & Family History Past Medical History?: Yes - Past Social History Smoking Status: Never Smoked - CARDIAC Hx Hypertension: Yes - PULMONARY Hx Respiratory Disorders: No - NEUROLOGICAL Hx Neurological Disorder: No - HEENT Hx HEENT Problems: No - RENAL Hx Chronic Kidney Disease: No - ENDOCRINE/METABOLIC Hx Endocrine Disorders: No - HEMATOLOGICAL/ONCOLOGICAL Hx Anemia: Yes - INTEGUMENTARY Hx Dermatological Problems: No - MUSCULOSKELETAL/RHEUMATOLOGICAL Hx Arthritis: Yes (BOTH KNEES) - GASTROINTESTINAL Hx Gastrointestinal Disorders: No - GENITOURINARY/GYNECOLOGICAL Hx Genitourinary Disorders: No - PSYCHIATRIC Hx Psychophysiologic Disorder: No Hx Substance Use: No - SURGICAL HISTORY Hx Surgeries: Yes Other/Comment: 08/2014 Gastric Sleeve. 2009 TRIGGER FINGER BOTH HANDS. 2004 BREAST REDUCTION - ANESTHESIA Hx Anesthesia: Yes Hx Anesthesia Reactions: No Hx Malignant Hyperthermia: No Meds Home Medications: Home Medication List Medication Instructions Recorded Confirmed Type Apixaban [Eliquis] 5 mg PO BID #60 tablet 11/26/17 Rx Docusate Sodium [Colace] 100 mg PO BID #60 capsule 11/26/17 Rx Ferrous Sulfate [Feosol] 325 mg PO BID #60 tab 11/26/17 Rx Allergies/Adverse Reactions: Allergies Allergy/AdvReac Type Severity Reaction Status Date / Time amlodipine Allergy SWELLING Verified 11/17/17 11:11 avocado Allergy URTICARIA Verified 11/17/17 11:10 - Medications Medications: Current Medications Enoxaparin Sodium (Lovenox) 90 mg SC Q12H EMILE PRN Reason: Protocol Last Admin: 11/26/17 05:44 Dose: 90 mg Iron Sucrose 200 mg/ Sodium (Chloride) 110 mls @ 110 mls/hr IVPB DAILY [facility] Last Admin: 11/26/17 08:45 Dose: 110 mls/hr Ketorolac Tromethamine (Toradol) 15 mg IVP Q6 PRN PRN Reason: Pain, moderate (4-7) Last Admin: 11/25/17 23:16 Dose: 15 mg Ondansetron HCl (Zofran Inj) 4 mg IVP Q6 PRN PRN Reason: Nausea/Vomiting Zolpidem Tartrate (Ambien) 5 mg PO HS [facility] Last Admin: 11/25/17 23:10 Dose: 5 mg Physical Exam - Additional Findings Additional findings: Physical therapy; Alert,well oriented in no acute distress neck; Supple, no adenopathy Chest; clear, no rales or rhonchi Heart, RSR,no murmur Abd; Soft, no mass, no h/s megaly Extremities ; Slight edema both lower ext,left more than the right Results - Vital Signs Recent Vital Signs: Last Vital Signs Temp 98.4 F 11/26/17 12:34 Pulse 59 L 11/26/17 12:34 Resp 20 11/26/17 12:34 BP 160/90 H 11/26/17 12:34 Pulse Ox 100 11/26/17 12:34 - Labs Result Diagrams: 11/26/17 11:30 11/26/17 11:30 Labs: Laboratory Results - last 24 hr 11/26/17 11/26/17 11/26/17 11:30 11:30 11:30 WBC 6.5 RBC 4.44 Hgb 8.9 L Hct 29.1 L MCV 65.6 L MCH 19.9 L MCHC 30.4 L RDW 22.5 H Plt Count 585 H MPV 7.8 Neut % (Auto) 66.5 Lymph % (Auto) 20.6 [place] % (Auto) 9.3 Eos % (Auto) 2.4 Baso % (Auto) 1.2 Neut # (Auto) 4.3 Lymph # (Auto) 1.3 [place] # (Auto) 0.6 Eos # (Auto) 0.2 Baso # (Auto) 0.1 PT 14.6 H INR 1.3 APTT 47.0 H Sodium 143 Potassium 3.6 Chloride 106 Carbon Dioxide 28 Anion Gap 13 BUN 13 Creatinine 0.8 Est GFR ( Amer) > 60 Est GFR (Non-Af Amer) > 60 Random Glucose 73 Calcium 9.3 Total Bilirubin 0.7 AST 50 H D ALT 22 Alkaline Phosphatase 93 Total Protein 7.9 Albumin 3.8 Globulin 4.1 H Albumin/Globulin Ratio 0.9 L Assessment & Plan - Assessment and Plan (Free Text) Assessment: Imp; Iron deficiency anemia due to inadequate iron 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 surgery, Plan: Plan; Have given 2 doses of venofer in addition to the 2 units of blood transfusion, and then continue po iron. repeat cbc in 2 weeks Have also asked her to take stool softeners with the po iron
[2017-11-26 16:01] VITALS: BP 134/82; PULSE 71; TEMP 98; O2SAT 99
[2017-11-29 00:05] LABS: ALBUMIN (PEP) 3.1 g/dL (3.8-4.8); ALPHA-1-GLOBULIN (PEP) 0.5 g/dL (0.2-0.3)
== END 2017-11-26 17:30 | disposition home or self-care (01) | DRG 301 ==
LOC: H.ER 14:33 → H.ERHOLD 17:21 → H.TEL 21:06
PROVIDERS: ADMIT Family Medicine; ATTEND Family Medicine
PROC: 30233N1 Transfusion of Nonautologous Red Blood Cells into Peripheral Vein, Percutaneous Approach (ICD-10-PCS; principal; 2017-11-23)
DX: I82.431 Acute embolism and thrombosis of right popliteal vein (principal); I82.411 Acute embolism and thrombosis of right femoral vein; D50.9 Iron deficiency anemia, unspecified; I10 Essential (primary) hypertension; Z79.01 Long term (current) use of anticoagulants; Z98.84 Bariatric surgery status; M17.0 Bilateral primary osteoarthritis of knee; M54.5 Low back pain